=== PATIENT | male | born 1960 | race Caucasian/White ===

== ENCOUNTER 2019-11-27 06:17 | Outpatient (CLI) | payer BC, OTHER ==
[2019-11-27 14:01] LABS: Hemoglobin 14.5 g/dL (14.0-18.0); Mean Corpuscular Volume 94.4 fL (78.0-98.0); Mean Platelet Volume 7.7 fL (7.4-10.4); Platelet Count 205 thou/uL (130-400); RBC Distribution Width 11.8 % (11.5-14.5); White Blood Cell (WBC) Count 4.6 thou/uL (4.8-10.8)
[2019-11-27 14:14] LABS: PTT 26.2 sec (22.9-36.1); Prothrombin Time 13.5 sec (12.0-14.7)
[2019-11-28 13:47] LABS: SARS-CoV-2 MS2 Positive; SARS-CoV-2 N Gene Negative; SARS-CoV-2 S Gene Negative; SARS-CoV-2 orf1ab Negative
== END 2019-11-27 06:18 | disposition home or self-care (01) ==
LOC: LABBT 06:17
PROVIDERS: ATTEND Neurological Surgery
DX: Z01.818 Encounter for other preprocedural examination (principal); Z11.59 Encounter for screening for other viral diseases; M48.062 Spinal stenosis, lumbar region with neurogenic claudication
CPT/HCPCS: 85027; 85610; 85730; 87635; U0003

== ENCOUNTER 2019-11-30 05:47 | Day surgery (SDC) | payer BC ==
[2019-11-24 08:59] VITALS: BMI 41.8
--- NOTE | 2019-11-30 06:05 | HP ---
ANTICIPATED DATE OF SURGERY: 11/30/2019, L3-L4, L4-L5 laminectomy. HISTORY OF PRESENT ILLNESS: Mr. Gutierres is a 59-year-old male with a chief complaint of lower back pain for the past 7 years. Describes the pain as radiating into his distal toes. Reports that his toes are always numb. The patient does have diabetic neuropathy but indicates that this numbness is different. He now has left leg weakness at times, which has caused him to fall. He is taking naproxen and a muscle relaxant that are not really helping. Pain is greater on the left than on the right. He is unable to stand longer than 2 minutes. Bending forward and sitting alleviates the pain. He has tried injections and physical therapy without any permanent relief. CURRENT MEDICATIONS: 1. Metformin. 2. Naproxen. 3. Tizanidine. 4. Glimepiride. 5. Gabapentin. 6. Lovastatin. 7. Enalapril. 8. Atorvastatin. 9. Gemfibrozil. PAST MEDICAL HISTORY: Anxiety, arthritis, cholesterol, diabetes, gout, high blood pressure, ulcers in the stomach. FAMILY HISTORY: Father , diagnosed with cancer. Mother , diagnosed with heart disease. SOCIAL HISTORY: Former smoker. Occasionally drinks alcohol. Denies illicit drug use. ALLERGIES: TO CODEINE. HOSPITALIZATIONS: Denies past hospitalizations. REVIEW OF SYSTEMS: CONSTITUTIONAL: Denies fever, chills. EAR, NOSE AND THROAT: Denies change in vision or hearing. CARDIAC: Denies chest pain, shortness of breath, diaphoresis. PULMONARY: Denies shortness of breath, cough, hemoptysis. GI: Denies fecal incontinence, abdominal pain, nausea, vomiting, diarrhea, change in stool formation and consistency. : Denies urinary incontinence, trouble with urination, frequency of urination , bloody urine. SKIN: Denies skin rash, bruising, bleeding, skin masses. MUSCULOSKELETAL: As per history of present illness. NEUROLOGIC: As per history of present illness. PSYCHOLOGIC: Denies anxiety, depression, or behavior changes. PHYSICAL EXAMINATION: VITAL SIGNS: weight 315, height 71 inches, BMI 43.93. HEENT: Pupils are equal. Extraocular movements are intact. NECK: Normal, soft, and supple. No masses are noted. Range of motion is intact and nonpainful. NEUROLOGIC: Awake, alert, oriented x3. Memory, attention, fund of knowledge, and language are normal. Cranial nerves normal and grossly intact. Gait and station are normal. Motor exam, there is normal strength in the iliopsoas, quadriceps, hamstrings, anterior tib, EHL, and gastroc and toe flexors. Sensory exam, mild stocking distribution, sensory loss. IMAGING: MRI ([facility]), severe stenosis L3-L4, L4-L5 and right foraminal L4-L5. Tiny listhesis L4-L5. X-rays ([facility]), normal flex/es. Assessment: Spinal stenosis in the lumbar region with neurogenic claudication. PLAN: 1. L3-L4, L4-L5 laminectomy. 2. Preop testing, CBC, PT, PTT, COVID-19. 3. Anesthesia clearance. INFORMED CONSENT: We discussed the indications, risks, benefits, alternatives, and expected results from surgery. The risks discussed included, but were not limited to, bleeding, infection, CSF leak, nerve damage, weakness, incontinence, cauda equina injury, arachnoiditis, paralysis, ventilator dependency, wheelchair dependency, loss of vision, cardiopulmonary complications of anesthesia or . Long-term complications discussed included, but were not limited to spinal instability and future surgery. He understands the risks and is willing to proceed. Job ID: [id number] [facility]
[2019-11-30] MEDS ORDERED: Thrombin 5000 UNITS/5 ML VIAL ONE (06:16)
[2019-11-30] MEDS ORDERED: Bupivacaine PF 0.5% 30 ML VIAL ONE (06:16)
[2019-11-30] MEDS ORDERED: EPINEPHrine 1 MG/ML AMP ONE (06:16)
[2019-11-30] MEDS ORDERED: Fentanyl 100 MCG/2 ML VIAL ONE ×3 (06:57→11:53)
[2019-11-30 07:18] LABS: Anion Gap 15 mmol/L (10-20); BUN (Urea Nitrogen) 19 mg/dL (8.4-25.7); Calc. Creatinine Clearance 148 mL/min (70-130); Calcium 9.2 mg/dL (7.8-10.44); Carbon Dioxide 27 mmol/L (22-29); Chloride 100 mmol/L (98-107); Estimated GFR-MDRD 74; Glucose 244 mg/dL (70-105); Potassium 4.5 mmol/L (3.5-5.1); Sodium 137 mmol/L (136-145)
[2019-11-30] MEDS ORDERED: Insulin Regular 300 UNITS/3 ML VIAL ONE (08:08)
[2019-11-30] MEDS ORDERED: Phenylephrine 10 MG/ML VIAL ONE (08:55)
[2019-11-30] MEDS ORDERED: PROPOFOL 200 MG/20 ML VIAL ONE (10:38)
[2019-11-30] MEDS ORDERED: Lidocaine 1% PF 5 ML VIAL ONE (10:38)
[2019-11-30] MEDS ORDERED: Ketorolac Tromethamine 30 MG/ML VIAL ONE (10:38)
[2019-11-30] MEDS ORDERED: Glycopyrrolate 0.2 MG/ML 5 ML SYRINGE ONE (10:38)
[2019-11-30] MEDS ORDERED: Albuterol Sulfate HFA (OR ONLY) ONE (10:38)
[2019-11-30] MEDS ORDERED: PHENYLEPHRINE-NS 100 MCG/ML 10 ML SYRINGE ONE (10:38)
[2019-11-30] MEDS ORDERED: Metoclopramide HCl 10 MG/2 ML VIAL ONE (10:38)
[2019-11-30] MEDS ORDERED: Rocuronium Bromide 10 MG/ML (10ML VIAL) ONE (10:38)
[2019-11-30] MEDS ORDERED: Ondansetron PF 4 MG/2 ML Vial ONE (10:38)
[2019-11-30] MEDS ORDERED: diphenhydrAMINE 25 MG CAP PO PRN (10:45)
[2019-11-30] MEDS ORDERED: Ondansetron PF 4 MG/2 ML Vial IVP PRN (10:45)
[2019-11-30] MEDS ORDERED: Sodium Chloride 0.9% 1,000 ML IV SCH (10:45)
[2019-11-30] MEDS ORDERED: tiZANidine HCl 4 MG TAB PO PRN (10:45)
[2019-11-30] MEDS ORDERED: Scopolamine 1.5 mg/72 hour Patch TD PRN (10:45)
[2019-11-30] MEDS ORDERED: Promethazine 25 MG TAB PO PRN (10:45)
[2019-11-30] MEDS ORDERED: Mag-Al 1200 mg/1200 mg/30 ML UDCUP PO PRN (10:45)
[2019-11-30] MEDS ORDERED: Acetaminophen 325 MG TAB PO PRN (10:45)
[2019-11-30] MEDS ORDERED: Milk Of Magnesia 30 ML UDCUP PO PRN (10:45)
[2019-11-30] MEDS ORDERED: Fentanyl 100 MCG/2 ML VIAL SLOW IVP PRN ×2 (10:54→10:55)
--- NOTE | 2019-11-30 11:09 | OP ---
DATE OF PROCEDURE: 11/30/2019 DRUG WORKER: Yayo Baltazar PA-C PREOPERATIVE INDICATION: Treat pain and prevent neurological deterioration. PREOPERATIVE DIAGNOSES: Two-level lumbar stenosis with severe neurogenic claudication. POSTOPERATIVE DIAGNOSES: Two-level lumbar stenosis with severe neurogenic claudication. PROCEDURES PERFORMED: Decompressive laminectomy, medial facetectomy, foraminotomy L3-L4 and L4-L5, and operating microscope. PREOPERATIVE MEDICATION: Ancef 2 g IV. DRAIN NUMBER: Zero. DRAIN TYPE: None. DESCRIPTION OF PROCEDURE: The patient was brought to the operating room. General endotracheal anesthesia was induced. The patient was carefully positioned on the Felix frame with the appropriate padding for the chest and hips. We chose the Felix frame because of the patient's morbid obesity. This obesity also made the case longer and necessitated longer instruments and operating microscope. With a lateral fluoro radiograph was used, we planned an incision. The lumbar skin was sterilely prepped and draped. We opened our incision with a 10 blade knife. We controlled bleeding with bipolar and monopolar cautery. We used monopolar cautery to dissect through a thick amount of subcutaneous tissue to the thoracodorsal fascia. We incised the fascia in the midline and reflected the paraspinal muscles off the spinous process and lamina of L3, L4, and L5. A self-retaining retractor was placed and a lateral fluoro radiograph confirmed the levels upon, which we were operating. We then used an Adson rongeur to remove the spinous process of L3-L4 and the top of L5. A Kerrison rongeur was used to fashion a laminectomy down the midline. We had to widen our laminectomy defect to decompress around the lateral aspect of the dura on both sides. We performed medial facetectomies at L3-L4 and L4-L5 to ensure the lateral recesses were well decompressed. We performed foraminotomies over the exiting L3, L4, and L5 nerve roots to ensure that there was no impingement there either. With our decompression secured, we controlled bleeding with gentle bipolar cautery. We waxed the bone edges. We infused local anesthetic in the paraspinal muscles. All of our laminectomy and medial facetectomies and foraminotomies were done under the operating microscope with microsurgical techniques. We closed the wound in anatomical layers. We applied a sterile dressing. This was a clean case, no contamination. Job ID: [id number]
[2019-11-30] MEDS ORDERED: Morphine 4 MG/ML VIAL ONE (11:55)
[2019-11-30] MEDS ORDERED: Morphine 2 MG/ML SYRINGE ONE (12:03)
[2019-11-30] MEDS ORDERED: CEFAZOLIN 2 GM in Premix Bag 1 BAG IVPB SCH (14:00)
[2019-11-30] MEDS ORDERED: Gemfibrozil 600 MG TAB PO SCH (16:30)
[2019-11-30] MEDS ORDERED: glipiZIDE 5 MG TAB PO SCH (16:30)
[2019-11-30] MEDS ORDERED: Simvastatin 5 MG TAB PO SCH (17:00)
[2019-11-30] MEDS ORDERED: metFORMIN 500 MG TAB PO SCH (17:00)
[2019-11-30] MEDS ORDERED: Gabapentin 400 MG CAP PO SCH (21:00)
[2019-12-01] MEDS ORDERED: Tamsulosin HCl 0.4 MG CAP PO PRN (06:00)
--- NOTE | 2019-12-01 08:34 | EKG ---
Test Reason : PREOP Blood Pressure : / mmHG Vent. Rate : 076 BPM Atrial Rate : 076 BPM P-R Int : 156 ms QRS Dur : 096 ms QT Int : 366 ms P-R-T Axes : 054 -44 037 degrees QTc Int : 411 ms Normal sinus rhythm Left axis deviation Abnormal ECG No previous ECGs available Confirmed by DR. Diane CUBA ([id number]) on 12/01/2019 8:34:13 AM Referred By: QUIQUE Confirmed By:DR. Diane CUBA
[2019-12-01] MEDS ORDERED: Lisinopril 20 MG TAB PO SCH (09:00)
== END 2019-11-30 14:27 | disposition home or self-care (01) ==
LOC: SDC 05:47
PROVIDERS: ATTEND Neurological Surgery
PROC: 01NB0ZZ Release Lumbar Nerve, Open Approach (ICD-10-PCS; principal; 2019-11-30)
DX: M48.062 Spinal stenosis, lumbar region with neurogenic claudication (principal); I10 Essential (primary) hypertension; E78.5 Hyperlipidemia, unspecified; E11.40 Type 2 diabetes mellitus with diabetic neuropathy, unspecified; F41.9 Anxiety disorder, unspecified; M19.90 Unspecified osteoarthritis, unspecified site; M10.9 Gout, unspecified; Z87.891 Personal history of nicotine dependence; Z79.1 Long term (current) use of non-steroidal anti-inflammatories (NSAID); Z79.84 Long term (current) use of oral hypoglycemic drugs; Z79.899 Other long term (current) drug therapy
CPT/HCPCS: 36415; 36416; 76000; 80048; 93005; 93010; J0171; J0690; J1815; J1885; J2001; J2270; J2370; J2405; J2704; J2765; J3010; J3370; J3490; S0020